=== PATIENT | male | born 1960 | race Caucasian/White ===

== ENCOUNTER 2021-09-07 14:46 | Outpatient (CLI) | payer BC, SELFPAY ==
--- NOTE | 2021-09-07 14:58 | ECG_ITS ---
Measurements Intervals [place] Rate: 81 P: 6 CT: 164 QRS: -28 QRSD: 128 T: 13 QT: 378 QTc: 440 Interpretive Statements SINUS RHYTHM RIGHT BUNDLE BRANCH BLOCK BASELINE ARTIFACT- I, II, AVR ABNORMAL ECG Electronically Signed On 09-07-2021 16:13:35 CDT by Jose Guadalupe Contreras D.O.
[2021-09-07 15:27] LABS: Anion Gap 12 mmol/L (8-16); Blood Urea Nitrogen 19 mg/dL (9-20); Calcium 9.7 mg/dL (8.4-10.2); Carbon Dioxide 27 mmol/L (22-30); Chloride 100 mmol/L (98-107); Estimated Glomerular Filt Rate > 60; Glucose 203 mg/dL (65-110); Potassium 4.1 mmol/L (3.4-5.0); Sodium 139 mmol/L (137-145)
== END 2021-09-07 14:47 | disposition home or self-care (01) ==
LOC: ANHSURGERY 14:51
PROVIDERS: Anesthesiology; PCP Family Medicine; Visit Provider Podiatrist Foot & Ankle Surgery
DX: E11.9 Type 2 diabetes mellitus without complications (principal); E78.5 Hyperlipidemia, unspecified; I10 Essential (primary) hypertension; Z01.818 Encounter for other preprocedural examination; I45.10 Unspecified right bundle-branch block
CPT/HCPCS: 36415; 80048; 93005

== ENCOUNTER 2021-09-11 02:07 | Day surgery (SDC) | payer BC, SELFPAY ==
[2021-09-04 15:51] VITALS: BMI 29.8
[2021-09-11] VITALS (7 sets, daily range): BP systolic 114–132; BP diastolic 77–86; PULSE 67–78; RESP 14–20; TEMP 36.3–36.8; O2SAT 98–100
[2021-09-11] MEDS: LACTATED RINGERS 1,000 ML 30 ML IV CONT ×2 (12:35→16:44)
[2021-09-11 12:41] LABS: Glucose Point of Care 171 mg/dl (65-105)
--- NOTE | 2021-09-11 12:42 | WPDHPUPDATE1 ---
History and Physical Update Update Date/Time: 09/11/21 12:42 History and Physical has been reviewed, including an updated exam of the patient. There are NO changes in the patient's condition. Risks, benefits, and alternatives have been discussed and questions answered. Patient agrees to proceed with procedure.
--- NOTE | 2021-09-11 13:06 | WPDANESEPPF ---
Anes - Initial Pre Proc Eval Procedure: Operation Date: 09/11/21 14:15 Proposed Procedures p Exostectomy of Bone Spur Calcaneus Right Heel - Pnio Knowles DPM Date/Time: 09/11/21 13:06 Surgeon: Pino Knowles DPM Pre Op Diagnosis: exostosis Patient Data Age: 61 Gender: M Height: 1.77 m Weight: 93.6 kg Last Vital Signs Temp 36.3 C L 09/11/21 13:02 Pulse 74 09/11/21 13:02 Resp 20 09/11/21 13:02 BP 114/77 09/11/21 13:02 Pulse Ox 100 09/11/21 13:02 Allergies Allergy/AdvReac Type Severity Reaction Status Date / Time No Known Allergies Allergy Verified 09/11/21 12:09 Home Medications Medication Instructions Recorded Confirmed Type aspirin [Baby Aspirin] 81 mg PO DAILY 09/04/21 09/11/21 History cetirizine 10 mg PO DAILY 09/04/21 09/11/21 History dulaglutide [Trulicity] 3 mg SUBCUT WEEKLY 09/04/21 09/11/21 History fluticasone propionate 1 spray INTRANASAL DAILY 09/04/21 09/11/21 History lisinopril 5 mg PO DAILY 09/04/21 09/11/21 History metformin 1,000 mg PO BID 09/04/21 09/11/21 History cnoaodfs-qyd-yudos-vit K-lycop 1 tablet PO DAILY 09/04/21 09/11/21 History [One-A-Day Men's Multivitamin] simvastatin 40 mg PO HS 09/04/21 09/11/21 History Laboratory Tests 09/11/21 12:39 POC Capillary Glucose 171 mg/dl H mg/dl (65-105) Patient hx anesthesia problems: none Family hx anesthesia problems: none Results Review: All pre-operative results and documents have been reviewed as part of the pre-operative evaluation. [facility] Past Medical History Medical History (Updated 09/11/21 @ 13:07 by Preet Powers DO) Diabetes type 2, controlled Hypertension DES (obstructive sleep apnea) Social History Social History Smoking status: Never smoker Alcohol intake: current Drinks per week: 11 Substance use: never Substance use type: does not use Living arrangements: with family Spiritual care concerns: No Anes - Eval Final PreProcedure Day of Procedure 09/11/21 13:06 Patient weight: obese Heart: regular rate and rhythm Lungs: clear to auscultation and normal air movement Airway: Mallampati scale class II Neurological: alert and oriented Last oral intake: >/= 8 hours ASA classification: III Emergent: no Anesthetic plan: proceed Anesthesia type and monitoring: general LMA and standard monitoring Results Review: All pre-operative results and documents have been reviewed as part of the pre-operative evaluation. Informed Consent: The patient's anesthetic plan and its attendant risks and benefits were discussed with the patient/family/POA. Questions were solicited and answers provided to the satisfaction of the patient/family/POA.
--- NOTE | 2021-09-11 14:11 | WPDANESEPPF ---
Anes - Initial Pre Proc Eval Procedure: Operation Date: 09/11/21 14:15 Proposed Procedures p Exostectomy of Bone Spur Calcaneus Right Heel - Pino Knowles DPM Date/Time: 09/11/21 14:11 Surgeon: Pino Knowles DPM Pre Op Diagnosis: exostosis Patient Data Age: 61 Gender: M Height: 1.77 m Weight: 93.6 kg Last Vital Signs Temp 36.3 C L 09/11/21 13:02 Pulse 74 09/11/21 13:02 Resp 20 09/11/21 13:02 BP 114/77 09/11/21 13:02 Pulse Ox 100 09/11/21 13:02 Allergies Allergy/AdvReac Type Severity Reaction Status Date / Time No Known Allergies Allergy Verified 09/11/21 12:09 Home Medications Medication Instructions Recorded Confirmed Type aspirin [Baby Aspirin] 81 mg PO DAILY 09/04/21 09/11/21 History cetirizine 10 mg PO DAILY 09/04/21 09/11/21 History dulaglutide [Trulicity] 3 mg SUBCUT WEEKLY 09/04/21 09/11/21 History fluticasone propionate 1 spray INTRANASAL DAILY 09/04/21 09/11/21 History lisinopril 5 mg PO DAILY 09/04/21 09/11/21 History metformin 1,000 mg PO BID 09/04/21 09/11/21 History wsrcpyte-fqy-qyryp-vit K-lycop 1 tablet PO DAILY 09/04/21 09/11/21 History [One-A-Day Men's Multivitamin] simvastatin 40 mg PO HS 09/04/21 09/11/21 History Laboratory Tests 09/11/21 12:39 POC Capillary Glucose 171 mg/dl H mg/dl (65-105) Patient hx anesthesia problems: none Family hx anesthesia problems: none Results Review: All pre-operative results and documents have been reviewed as part of the pre-operative evaluation. [facility] Past Medical History Medical History (Updated 09/11/21 @ 13:07 by Preet Powers DO) Diabetes type 2, controlled Hypertension DES (obstructive sleep apnea) Social History Social History Smoking status: Never smoker Alcohol intake: current Drinks per week: 11 Substance use: never Substance use type: does not use Living arrangements: with family Spiritual care concerns: No Anes - Eval Final PreProcedure Day of Procedure 09/11/21 14:11 Patient weight: obese Heart: regular rate and rhythm Lungs: clear to auscultation and normal air movement Airway: Mallampati scale class II Neurological: alert and oriented Last oral intake: >/= 8 hours ASA classification: III Emergent: no Anesthetic plan: proceed Anesthesia type and monitoring: general GIVS and LMA Results Review: All pre-operative results and documents have been reviewed as part of the pre-operative evaluation. Informed Consent: The patient's anesthetic plan and its attendant risks and benefits were discussed with the patient/family/POA. Questions were solicited and answers provided to the satisfaction of the patient/family/POA.
[2021-09-11] MEDS: ceFAZolin 2 GM/D5W 50 ML 2 GM/50 ML BAG IVPB (15:39)
--- NOTE | 2021-09-11 16:23 | PM.OP ---
Procedure Note - Brief Procedure Note - Brief Date of procedure: 09/11/21 Pre-op diagnosis: exostosis left calaneus Post-op diagnosis: same Procedure performed: Exostectomy left calcaneus Description of procedure: Under monitored sedation patient was brought into the operating room, placed on the operating table. Following administration of general anesthesia patient was placed in the lateral position. The foot was then scrubbed, prepped and draped in the usual aseptic manner. Esmark bandage used to exsanguinate the patient?s left leg and the ankle tourniquet was inflated to 250mm. Attention was then directed to the lateral aspect of the calcaneus at the insertion of the Achilles tendon where a linear incision was made. It was deepened down to the level of the insertion of the tendon using sharp and blunt dissection with care being taken to identify and retract all vital and neuro and vascular structures. The retrocalcaneal exostosis was removed using the bone saw and the osteotome and mallet. All rough edges were smoothed with bur and the Achilles tendon was the reattached to the bone using the Reelix anchor. Wound was flushed with copious amounts of sterile normal saline. The deep tissue repaired using 3-0 vicryl and the skin was repaired using 5-0 vicryl. The wound was covered with dry, sterile compressive dressing consisting of steristrips, antibiotic ointment, Adaptic, 4 x 4?s, and Kerlix. The tourniquet was deflated, prompt capillary refill response noted to all digits of the left foot. Patient tolerated procedure and anesthesia well. He was transferred to the recovery room with vital signs stable and neurovascular status intact to all digits of the left foot. Following a period of post-operative monitoring the patient will be discharged home with written and oral post-operative instructions. Anesthesia: GLMA and MAC Surgeon: Pino Knowles DPM Cable Maintainer: None Estimated blood loss (mL): 5 Drains: No Packing: No Pathology: yes Complications: No immediate complications Condition: stable Disposition: PACU
[2021-09-11 16:59] LABS: Glucose Point of Care 130 mg/dl (65-105)
[2021-09-11] MEDS: oxyCODONE HCL (*CRX) 5 MG TAB IR PO (17:46)
== END 2021-09-11 18:00 | disposition home or self-care (01) ==
PROVIDERS: PCP Family Medicine; Visit Provider Podiatrist Foot & Ankle Surgery
PROC: (CPT 28118; principal; 2021-09-11 14:15)
DX: M89.8X7 Other specified disorders of bone, ankle and foot (principal); I10 Essential (primary) hypertension; E11.9 Type 2 diabetes mellitus without complications; Z79.84 Long term (current) use of oral hypoglycemic drugs; E78.5 Hyperlipidemia, unspecified; G47.33 Obstructive sleep apnea (adult) (pediatric); E66.9 Obesity, unspecified; Z68.30 Body mass index [BMI] 30.0-30.9, adult
CPT/HCPCS: 28118; 82948; 88304; 88309; 88311; A9270; J0690; J1100; J2250; J2405; J2704; J3010; J7120